=== PATIENT | male | born 1945 | race Caucasian/White ===

== ENCOUNTER 2017-02-17 12:57 | Emergency (ER) | payer MEDICARE, OTHER ==
[~2017-02-17] VITALS: Ht 170.2 cm; Wt 103.2 kg
[2017-02-17] MEDS ORDERED: ATOR40TA75 PO (13:19)
[2017-02-17] MEDS ORDERED: TRAM50TA2 PO (13:19)
[2017-02-17] MEDS ORDERED: METF10004 PO (13:19)
[2017-02-17] MEDS ORDERED: LISI2.5T3 PO (13:19)
[2017-02-17] MEDS ORDERED: METO1TAB7 PO (13:19)
[2017-02-17] MEDS ORDERED: GLIP2.5T6 PO (13:19)
[2017-02-17] MEDS ORDERED: ASPI81TA85 PO (13:19)
[2017-02-17] MEDS ORDERED: FLOM5CAP PO (13:19)
[2017-02-17 14:12] LABS: BASO % 0.4 % (0.0-1.0); EOS # 0.2 K/mm3 (0.0-0.50); EOS % 2.7 % (0.0-3.0); LARGE UNSTAINED CELL # 0.2 K/mm3 (0.0-0.4); LYMPH # 1.7 K/mm3 (1.5-4.5); LYMPH % 24.3 % (24.0-44.0); MEAN CORPUSCULAR HEMOGLOBIN 31.8 pg (27.0-33.0); MEAN CORPUSCULAR HGB CONC 34.9 g/dl (32.0-36.5); MEAN CORPUSCULAR VOLUME 91.1 fl (80.0-96.0); MONO # 0.6 K/mm3 (0.0-0.8); MONO % 8.2 % (0.0-5.0); NEUTROPHILS # 4.2 K/mm3 (1.8-7.7); NEUTROPHILS % 61.5 % (36.0-66.0); PLATELET COUNT, AUTOMATED 198 k/mm3 (150-450); WHITE BLOOD COUNT 6.9 K/mm3 (4.0-10.0)
[2017-02-17 14:36] LABS: ALBUMIN 3.5 GM/DL (3.2-5.2); ALKALINE PHOSPHATASE 74 U/L (45-117); ALT/SGPT 30 U/L (12-78); ANION GAP 9 MEQ/L (8-16); AST/SGOT 17 U/L (15-37); BILIRUBIN,DIRECT < 0.1 MG/DL (0.0-0.2); BILIRUBIN,TOTAL 0.4 MG/DL (0.2-1.0); BLOOD UREA NITROGEN 14 MG/DL (7-18); CALCIUM LEVEL 8.5 MG/DL (8.8-10.2); CARBON DIOXIDE LEVEL 24 MEQ/L (21-32); CHLORIDE LEVEL 106 MEQ/L (98-107); CREATININE FOR GFR 0.83 MG/DL (0.70-1.30); GLOMERULAR FILTRATION RATE > 60.0 (>42); GLUCOSE, FASTING 146 MG/DL (83-110); POTASSIUM SERUM 4.5 MEQ/L (3.5-5.1); SODIUM LEVEL 139 MEQ/L (136-145)
[2017-02-17] MEDS ORDERED: ISOVUE-370 76% 100ML VIAL (Q9967) As Ordered ONE (14:38)
--- NOTE | 2017-02-17 15:37 | REP ---
Clinical: Left-sided chest pain. Technique: Axial contrast enhanced images from the thoracic inlet to the upper abdomen using 100 ml Isovue 370 intravenous contrast material with coronal and sagittal re-formations. Findings: Chronic age-related interstitial changes and bibasilar scarring appreciated along with mild bronchiectasis. Small subtle nodular densities in the lateral left lung base may reflect chronic change versus acute process. Few scattered calcified granuloma suggest prior granulomas disease. No pleural effusion or pneumothorax. No significant adenopathy. Mediastinum demonstrates moderate atherosclerotic changes to the thoracic aorta and coronary arteries without aortic aneurysm or cardiomegaly. No pericardial effusion. The musculoskeletal structures demonstrate age-related degenerative changes without focal osseous abnormality. Impression: 1. Predominately mild age-related chronic interstitial changes suggested. 2. Subtle lateral left lower lobe chronic scarring versus acute process including atelectasis with small nodular densities. Clinical correlation is recommended along with 3-6 month follow-up. Signed by Antolin Seals MD 02/17/2017 03:28 P
--- NOTE | 2017-02-17 15:41 | REP ---
Clinical: Acute upper abdominal pain. Technique: Axial contrast enhanced images from the lung bases to the pubic symphysis using 100 ml Isovue 370 intravenous contrast material with coronal and sagittal re-formations. Findings: Lung bases suggest mild left basilar atelectasis with small underlying nodular densities. Liver, spleen, pancreas, gallbladder, bilateral adrenal glands and right kidney appear normal. Left kidney demonstrates duplicated collecting system without hydroureteronephrosis of either moiety. Bilateral mild perinephric stranding appears symmetric and likely chronic the kidneys demonstrate symmetric enhancement without obvious parenchymal abnormality. The enteric system is without obstruction. A mild enteritis cannot be excluded. Scattered colonic diverticula noted without acute diverticulitis. Normal terminal ileum and appendix identified in the right lower quadrant. Pelvis demonstrates normal bladder and moderately prominent prostate gland measuring 5.7 cm diameter. No pelvic fluid or ascites. No free air. No significant adenopathy. Atherosclerotic changes of the aorta and vasculature noted without aneurysm. Musculoskeletal structures demonstrate age-related degenerative changes. Impression: 1. Cannot exclude mild enteritis. 2. 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 3. Scattered colonic diverticula without acute diverticulitis. 4. No ascites. No adenopathy. No obvious mass lesion. Signed by Antoiln Seals MD 02/17/2017 03:33 P
[2017-02-17 17:16] VITALS: BP 153/68
--- NOTE | 2017-02-17 17:28 | ECGEPIP ---
Stationary ECG Study [facility] - ED Test Date: 2017-02-17 Pat Name: CABRERA SLADE Department: Room: - Gender: M [employer]asing [employer]: rn : 1945 Requested By: KATHE Mercado Order Number: [id number] Reading MD: Zainab Minor Measurements Intervals [place] Rate: 59 P: -11 SD: 164 QRS: -24 QRSD: 125 T: -9 QT: 421 QTc: 419 Interpretive Statements SINUS BRADYCARDIA LEFT BUNDLE BRANCH BLOCK NO PRIOR FOR COMPARISON Electronically Signed On 02-17-2017 17:28:10 EDT by Zainab Minor
== END 2017-02-17 17:21 | disposition home or self-care (01) ==
LOC: M ED 12:57
DX: R10.9 Unspecified abdominal pain (principal); J98.11 Atelectasis; R91.8 Other nonspecific abnormal finding of lung field; I10 Essential (primary) hypertension; E11.9 Type 2 diabetes mellitus without complications; N40.0 Benign prostatic hyperplasia without lower urinary tract symptoms; F17.210 Nicotine dependence, cigarettes, uncomplicated; I25.2 Old myocardial infarction; Z79.82 Long term (current) use of aspirin; Z79.899 Other long term (current) drug therapy; Z95.5 Presence of coronary angioplasty implant and graft
CPT/HCPCS: 71260; 74177; 80048; 80076; 82550; 82553; 83605; 83690; 84484; 85025; 93005; 93041; 99285; Q9967